=== PATIENT | male | born 1970 | race Caucasian/White ===

== ENCOUNTER 2020-09-21 12:35 | Outpatient (CLI) | payer OTHER, SELFPAY ==
--- NOTE | ~2020-09-21 | XR_ITS ---
EXAMINATION: XR fl inj hip LT for MR/CT DATE: 09/21/2020 14:10 INDICATION: Strain of muscle, fascia, and tendon of left hip. TECHNIQUE: A time-out was performed to verify the patient's name, date of , and procedure to b e performed. The procedure including the risks, benefits, and alternatives was discussed with the pat ient. Risks discussed included bleeding and infection. The patient understood the risks and agreed to proceed. The skin overlying the left hip joint was prepped and draped in usual sterile fashion. Ane sthetic was administered with 1% lidocaine subcutaneously. A 22 G needle was advanced under fluorosc opic guidance into the joint. Subsequently, injectate consisting of 11 mL of 1:200 Multihance, 1:4 1 % lidocaine, and 1:4 Omnipaque 240 was instilled. The needle was removed and the entry site was katherin hilary and dressed. There were no immediate complications. Fluoroscopy exposure time was 0.1 minutes. T he total number of images was 2. FINDINGS: Real-time fluoroscopy demonstrates the needle and contrast in the left hip joint. IMPRESSION: 1. Successful left hip joint injection of contrast for subsequent MR arthrography. Reviewed, dictated and finalized at location A. IMPRESSION: 1. Successful left hip joint injection of contrast for subsequent MR arthrograp .
--- NOTE | ~2020-09-21 | MR_ITS ---
EXAMINATION: MR hip LT w con DATE: 09/21/2020 15:00 INDICATION: Strain of muscle fascia and tendon at the left hip TECHNIQUE: Magnetic resonance (MR) arthrogram of the left hip was performed following intra-articular gadolinium contrast injection and without intravenous contrast. Details of the hip joint injection h ave been dictated separately. Sequences included full-field of the pelvis axial T1-weighted FSE, axia l T2-weighted FS FSE and coronal PD-weighted FS FSE, small field of view of the left hip with axial T 1-weighted FS SE, axial T2-weighted FS FSE, coronal T1-weighted FS SE, coronal T2-weighted FS FSE and sagittal T2-weighted FS FSE . Additional T1-weighted FGRE images in a radial pattern oriented orthog onal to the acetabular rim were obtained for evaluation of the labrum. COMPARISON: None. FINDINGS: Bones/labrum/cartilage: Alignment is normal. No fracture, avascular necrosis or pathologic marrow replacing process. Labrum is normal. Articular cartilage is normal. Fluid: Physiologic amount fluid in the right hip joint. Soft tissues: Normal and symmetric muscle bulk and signal in the pelvis and visualized proximal thighs. The bilater al iliopsoas and proximal hamstring tendons are normal. Mild increased fluid signal about the inserti on of the left gluteus minimus tendon consistent with mild bursitis. Mild tendinopathy of the tendon without discrete tear. Remaining bilateral gluteal tendons are normal. Limited evaluation of visceral organs of the pelvis is unremarkable. No pathologically enlarged pelvic/inguinal lymphadenopathy. IMPRESSION: 1. Mild left gluteus minimus bursitis and mild left gluteus minimus tendinopathy without discrete tea r. Reviewed, dictated and finalized at location B. IMPRESSION: 1. Mild left gluteus minimus bursitis and mild left gluteus minimus tendinopath y without discrete tear.
== END 2020-09-21 12:36 | disposition home or self-care (01) ==
DX: S76.012A Strain of muscle, fascia and tendon of left hip, initial encounter (principal); X58.XXXA Exposure to other specified factors, initial encounter; M71.552 Other bursitis, not elsewhere classified, left hip
CPT/HCPCS: 20610; 73722; 77002; A9577; Q9967